=== PATIENT | female | born 1980 | race American Indian/Alaskan Native ===

== ENCOUNTER 2025-01-24 21:24 | Emergency (ER) | payer MEDICAID, SELFPAY ==
[2025-01-24 21:38] VITALS: BP 115/59; PULSE 72; RESP 18; TEMP 36.6; O2SAT 97; BMI 21.4
--- NOTE | 2025-01-24 22:04 | PC.NURSE ---
Assumed care of pt, presents with chronic back pain, pt states that she normally see her doctor to get cortisone shots but her doctor is out of town, aaox4, 12/10 pain
--- OUTSIDE RECORDS SUMMARY | 2025-01-24 22:21 | XMS_ITS ---
Author Name [facility] Organization Unknown Care Team Organization Name Specialty Phone Email Start Date End Da te [facility] MELISSA RINCON Primary Care 05/11/2022 12/20/2023
--- OUTSIDE RECORDS SUMMARY | 2025-01-24 22:21 | XMS_ITS | Clinical Summary ---
Author Organization [address] [facility] Address [address] [place] [address] Phone Care Team Providers Care Dough Brake Machine Operator Name Role Phone Terence Whitten MD Primary Care Provider [phone] Allergies No known active allergies Medications polydextrose-vit castro B complex (Fiber Gummies, with B-complex,) 2.5 gram tablet,chewable Take 2 Each by mouth daily. 11/05/2023 Active Lactobacillus acidophilus (PROBIOTIC ORAL) Take 1 Capsule by mouth daily. 11/05/2023 Active hydrOXYzine HCL (ATARAX) 10 mg tablet Take 1 tablet (10 mg total) by mouth 3 (three) times a day. 90 tablet 3 07/14/2024 07/10/19 26 Active Active Problems Problem Noted Date Diagnosed Date Anxiety 12/14/2022 Bipolar affective disorder, depressed, in remission ([facility] V24) 12/14/2022 Mild intermittent asthma, uncomplicated 12/15/19 23 Scoliosis 12/14/2022 Surgical History Surgery Date Site/Laterality Comments OTHER SURGICAL HISTORY Left PROCEDURE: [place] SURGICAL ARTHROSCOPY SHOULDER REPAIR SLAP LESION; COMMENT: 2015 Medical History Medical History Date Comments Scoliosis DX:Scoliosis Depression DX:Depression Anxiety disorder DX:Anxiety diso rder Mild intermittent asthma, uncomplicated DX:Mild intermittent asthma, uncomplicated Family History Medical History Relation Name Comments No Known Problems Brother Diabetes Maternal Grandmother Seizures Mother No Known Problems Sister Relation Name Status Comments Brother Father Other Maternal Grandmother Mother Sister Social History Tobacco Use Types Packs/Day Years Used Date Smoking Tobacco: Every Day Smokeless Tobacco: Never Alcohol Use Standard Drinks/Week Comments Never 0 (1 standard drink = 0.6 oz pur e alcohol) Comments Unknown Sex and Gender Information Value Date Recorded Sex Assigned at Not on file Legal Sex Female 9:59 AM EST Gender Identity Not on file Sexual Orientation Not on file Obstetrics History Last Filed Vital Signs Vital Sign Reading Time Taken Comments Blood Pressure 110/62 07/27/2024 3:14 PM EDT Pulse 80 07/27/2024 3:14 PM EDT Temperature - - Respiratory Rate - - Oxygen Saturation 98% 07/27/2024 3:14 PM EDT Inhaled Oxygen Concentration - - Weight 59.1 kg (130 lb 3.2 oz) 07/27/2024 3:14 P M EDT Height 162.6 cm (5' 4 ) 12/06/2023 9:42 AM EDT Body Mass Index 22.35 12/06/2023 9:42 AM EDT Plan of Treatment Health Maintenance Due Date Last Done Comments Breast Cancer Screening 1981 DTaP,Tdap,and Td Vaccines (1 - Tdap) 2000 Hepatitis B Vaccines (1 of 3 - 19+ 3-dose series) 2000 Pneumococcal Vaccine: Pediat rics (0 to 5 Years) and At-Risk Patients (6 to 49 Years) (1 of 2 - PCV) 2000 Cervical Cancer Screening: P ap Smear 2002 HIV Screening 06/22/2022 Social Influencers of Health Screening 06/22/2022 Depression Screening 05/03/2024 COVID-19 Vaccine ( - 2023-2 5 season) 2025 Influenza Vaccine (#1) 2025 Cholesterol Screening (Lipid Panel) 11/04/2028 11/05/2023 Hepatitis C Screening Completed 11/05/2023 HIB Vaccines Aged Out No longer eligi ble based on patient's age to complete this topic HPV Vaccines Aged Out No longer eligi ble based on patient's age to complete this topic Hepatitis A Vaccines Aged Out No long er eligible based on patient's age to complete this topic IPV Vaccines Aged Out No longer eligi ble based on patient's age to complete this topic MMR Vaccines Aged Out No longer eligi ble based on patient's age to complete this topic Meningococcal ACWY Vaccine Aged Out N o longer eligible based on patient's age to complete this topic Meningococcal B Vaccine Aged Out No l onger eligible based on patient's age to complete this topic RSV Immunization Patients Un andi 20 months Aged Out No longer eligible b ased on patient's age to complete this topic Varicella Vaccines Aged Out No longer eligible based on patient's age to complete this topic Procedures Procedure Name Priority Date/Time Associated Diagnosis Comments HEPATITIS C SCREENING Routine 11/05/2023 LIPID PANEL Routine 11/05/2023 from Last 3 Months or Most Recently Relevant to Health Maintenance Results * Hepatitis C Screening (11/05/2023) Hepatitis C Screening abstracted us Historical Provider HEALTH MAINTENANCE Final Result * (ABNORMAL) Lipid panel (11/05/2023) LDL/HDL Ratio 5(A) 0 - 4 Triglycerides 181(A) 0 - 150 mg/dL Cholesterol 218(A) 0 - 200 mg/dL HDL 45 >=40 mg/dL LDL Cholesterol 137(A) 0 - 100 mg/dL Blood Venous blood specimen / Unknown Historical Provider LAB BLOOD ORDERABLES Sima l Result from Last 3 Months or Most Recently Relevant to Health Maintenance Insurance MEDICAID - [place] Care Teams Dough Brake Machine Operator Relationship Specialty Start Date End Date Terence Whitten MD [address] [facility] [address] [place] [address] PCP - General 10/26/23
--- NOTE | 2025-01-24 23:20 | ED.GENADULT ---
HPI - General Adult General Chief complaint: Back Pain/Injury Stated complaint: back pain Time Seen by Provider: 01/24/25 23:19 Source: patient Mode of arrival: ambulatory Limitations: no limitations History of Present Illness ED Provider: Gaurang EDWARDS HPI narrative: The patient is a 44-year-old female presenting to the ED reporting she suffers from chronic cervical and thoracic back pain with associated tingling paresthesias of the bilateral upper extremities. Patient has been suffering from these symptoms for the past 5 years, has been previously managed well by the pain management clinic. Patient reports she receives cortisone injections every [address] Khan. The patient reports last cortisone injection was 3 months ago, however per patient report when she called to schedule her repeat appointment she was advised that Dr. Khan is on vacation and the office was not able to advise her when he was returning. The patient denies any recent fall or other trauma, denies associated fever/chills, nausea, vomiting, bowel/bladder incontinence, saddle paresthesias, or lower extremity weakness. Related Data Previous Rx's ?Medication ?Instructions ?Recorded prednisone 10 mg tablet 10 mg PO DIRECTED #42 tabs 01/25/25 Allergies Allergy/AdvReac Type Severity Reaction Status Date / Time No Known Allergies Allergy Verified 01/24/25 21:39 Review of Systems Review of Systems: Yes all other systems are reviewed and are negative PMFSH Social History Social History Smoked in Last 30 Days: No Advance Directives: No Advance Directives Information Provided: Yes Physical Exam ED Vital Signs: Vital Signs - 24 hr 01/24/25 21:38 Temperature 97.9 F Pulse Rate 72 Respiratory Rate 18 Blood Pressure 115/59 L Pulse Oximetry 97 Oxygen Delivery Method Room Air BMI result Body Mass Index 21.4 CONSTITUTIONAL: The patient appears non-toxic, well nourished and in no acute distress. Vital signs as documented. HEAD: Atraumatic, normocephalic. EYES: EOMs grossly intact, pupils equal, conjunctiva clear, no exudate. ENT: Nares patent, no discharge. Airway patent, no audible stridor, visible mucosa is pink and moist without noted lesions. NECK: Trachea is midline, no obvious masses or gross abnormalities. CHEST: Symmetric movement, normal appearance. LUNGS: LS present and CTAB, no w/r/r. Non-labored work of breathing. CARDIAC: Regular Rhythm, S1/S2 appreciated, no murmurs, rubs or gallops. ABDOMEN: Abdomen soft and non-tender x4 quadrants, no palpable masses or organomegaly. : Deferred. BACK: No midline spinous process tenderness, crepitus, or step-off. EXTREMITIES: Normal tone, moves all extremities spontaneously without reported pain. No obvious acute injury or deformity noted. NEURO: Alert and oriented x3, CN II-XII appear grossly intact. Cerebellar Functioning grossly intact. No obvious sensory or motor deficits. Speech clear and appropriate. Patient ambulates with a steady gait. PSYCH: normal affect, appropriate eye contact, fluid speech, with appropriate response to questioning. No reported suicidality or homicidality. SKIN: Warm, dry, color appropriate, normal turgor. No rashes noted. Medical Decision Making Medical Decision Making MDM Narrative: 12:00 AM 01/25/2025 (Wilbur EDWARDS): The patient is a 44-year-old female presenting to the ED reporting she suffers from chronic cervical and thoracic back pain with associated tingling paresthesias of the bilateral upper extremities. Patient has been suffering from these symptoms for the past 5 years, has been previously managed well by the pain management clinic. Patient reports she receives cortisone injections every [address] Khan. The patient reports last cortisone injection was 3 months ago, however per patient report when she called to schedule her repeat appointment she was advised that Dr. Khan is on vacation and the office was not able to advise her when he was returning. The patient denies any recent fall or other trauma, denies associated fever/chills, nausea, vomiting, bowel/bladder incontinence, saddle paresthesias, or lower extremity weakness. On exam the patient has no midline spinous process tenderness or crepitus, patient ambulates with a steady gait, there was no impaired range of motion. The patient will be treated with a prednisone taper for pain control while setting up a new appointment with her pain specialist. Admission/Observation Consideration of admission/observation: Escalation of care including admission/observation considered Discharge Plan Discharge Clinical Impression: Thoracic back pain Patient Disposition: Home, Self-Care Instructions: Thoracic Pain (ED), Chronic Neck Pain (DC) Additional Instructions: Thank you for choosing [facility]'s Emergency Department for your care today. At this time there is no indication for admission to the hospital or continued ED observation, and it is safe to discharge you home. Your exam today is consistent with the your chronic back pain and paresthesias. We are treating you with an oral course of prednisone to help alleviate your pain while you set up your next appointment with the your paint technician for cortisone injection. Please take the prednisone as prescribed. You should also take alternating (staggered) doses of ibuprofen 600mg and Tylenol 1000mg every 4 hours as needed for any additional pain. Please also follow up with your primary care physician for re-evaluation, additional management of your symptoms, and continued preventative care. If you do not have a primary care physician, please call the [facility] at [phone] to establish a new primary care physician. While waiting to establish your new primary care physician, you can call our Walk-in Care Clinic at [phone] for non-emergency needs. Please return to the emergency department if you develop a severe or sudden change in your symptoms, a fever over 100.4 that does not improve with Tylenol or Ibuprofen, recurrent vomiting, or any other new or worsening symptoms or concerns. Prescriptions: New prednisone 10 mg tablet 10 mg PO DIRECTED Qty: 42 0RF Rx Instructions: Take 60 mg (6 tabs) daily for 2 days. Then take 50 mg (5 tabs) daily for 2 days. Then take 40 mg (4 tabs) daily for 2 days. Then take 30 mg (3 tabs) daily for 2 days. Then take 20 mg (2 tabs) daily for 2 days. Then take 10 mg (1 tab) daily for 2 days. Then stop. [facility]Primary [facility] Provider, Primary Care] Clinical Impression: Thoracic back pain Print Language: Cambodian
[2025-01-25 00:21] VITALS: BP 125/71; PULSE 69; RESP 16; TEMP 36.5; O2SAT 100
[2025-01-25 00:44] VITALS: BP 125/71; PULSE 69; RESP 16; TEMP 36.5; O2SAT 100
== END 2025-01-25 00:45 | disposition home or self-care (01) ==
PROVIDERS: Emergency Provider Emergency Medicine
DX: M54.6 Pain in thoracic spine (principal); M54.9 Dorsalgia, unspecified
CPT/HCPCS: 96372; 99284; J1885

== ENCOUNTER 2025-04-02 09:05 | Outpatient (AMB) | payer MEDICAID, SELFPAY ==
[2025-04-02 09:07] VITALS: BP 124/65; PULSE 70; TEMP 36.6; O2SAT 100; BMI 22.3
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
--- OUTSIDE RECORDS SUMMARY | 2025-04-02 10:34 | XMS_ITS | Clinical Summary ---
Author Organization 175 [facility] Address [address] [place] [address] Phone Care Team Providers Care Automobile Rental Clerk Name Role Phone Terence Whitten MD Primary Care Provider [phone] Allergies No known active allergies Medications polydextrose-vit [...] 12/14/2022 Bipolar affective disorder, depressed, in remission ([facility] V24) 12/14/2022 Mild intermittent asthma, uncomplicated 12/15/19 23 Scoliosis 12/14/2022 Surgical History Surgery Date Site/Laterality Comments OTHER SURGICAL HISTORY Left PROCEDURE: [place] SURGICAL ARTHROSCOPY SHOULDER REPAIR SLAP LESION; COMMENT: [...] Cervical Cancer Screening: P ap Smear 2002 HPV Vaccines (1 - 3-dose SCD M series) 2008 HIV Screening 06/22/2022 Social Influencers of Health Screening 06/22/2022 Depression Screening 05/03/2024 COVID-19 Vaccine ( - 2024-2 6 season) 2025 Influenza Vaccine (#1) 2025 Cholesterol Screening (Lipid Panel) 11/04/2028 11/05/2023 RSV Immunization Adult Patie nts (1 - 1-dose 75+ series) 2056 Hepatitis C Screening Completed 11/05/2023 HIB Vaccines [...] C Screening (11/05/2023) Hepatitis C Screening abstracted Historical Provider HEALTH MAINTENANCE Final Result * [...] Maintenance Insurance MEDICAID - [place] Care Teams Automobile Rental Clerk Relationship Specialty Start Date End Date Terence Whitten MD [address] [address] PCP - General 10/26/23
== END 2025-04-02 16:57 | disposition home or self-care (01) ==
PROVIDERS: Visit Provider Family Medicine
DX: M54.9 Dorsalgia, unspecified (principal); G89.29 Other chronic pain

== ENCOUNTER → 2025-04-02 09:05 | Outpatient (BNVA) | payer MEDICAID, SELFPAY | PROVIDERS: Visit Provider Family Medicine | DX: G89.29 Other chronic pain (principal); M54.9 Dorsalgia, unspecified | CPT/HCPCS: 99202 ==